=== PATIENT | male | born 1955 | race Caucasian/White ===

== ENCOUNTER 2022-07-15 10:42 | Outpatient (RCR) | payer BC, MEDICARE, SELFPAY ==
--- NOTE | 2022-06-11 08:28 | ONC.NURNOTE ---
Dx: prostate cancer
--- NOTE | 2022-07-09 09:22 | ONC.NURNOTE ---
Addendum entered by Viky Corral, ABDIRAHMAN 09/23/22 14:18: Per Availity [place] will now need prior authorization in 2022. Original Note: Authorization: User: Noemy Valdiviacody Date: 12/22/21 13:15 Type: Eligibility Determination Note... Request received from [facility] for prior authorization of [place] [id number]. Patient carries BCBS as primary insurance. Per Availity no prior authorization is required for [place]. Services are based on medical necessity. [id number]
[2022-07-15 10:54] VITALS: BP 127/77; PULSE 82; RESP 16; TEMP 36.6; O2SAT 98
--- NOTE | 2022-07-15 11:10 | PC.NURSE ---
[facility] received orders for Eligard from [facility] Rad[facility]. Along with those orders were lab orders. RN arranged to have lab draw blood, however, pt reported that he had labs drawn on Wednesday already. Pt confirmed TSA and Testosterone levels were drawn. No labs done here at [facility] today.
--- NOTE | 2022-12-10 13:44 | URNOTE ---
Request received from [facility] for prior authorization of [place] [id number]. Patient carries Medicare primary and BC [place], Prior authorization is not required as services are based on medical necessity and follow Medicare guidelines.
--- NOTE | 2023-01-01 12:03 | ONC.NURNOTE ---
Patient was due for lupron today, and did not show up. CS called patient to find out if he wanted to reschedule and he states that he received this elsewhere.
== END 2023-01-11 23:59 | disposition home or self-care (01) ==
LOC: CCIC 10:42
PROVIDERS: Visit Provider Clinical Nurse Specialist
DX: C61 Malignant neoplasm of prostate (principal)
CPT/HCPCS: 84153; 84403; 96401; J9217

== ENCOUNTER 2023-02-18 09:46 | Outpatient (RCR) | payer MEDICARE, BC, SELFPAY ==
--- NOTE | 2023-02-18 10:51 | PT.OPEX ---
PT [facility] Outpatient Eval PT [facility] Outpatient Eval Start: 02/18/23 07:20 Freq: Status: Active Protocol: Document 02/18/23 07:23 [place] (Rec: 02/18/23 07:30 [email or web address] [id number]) E-signed By Kailee Velazquez PT Physical Therapy Outpatient Evaluation Insurance Information Recert Due Date 05/15/23 Insurance Name Medicare B Medical Diagnosis Prostate CA Urinary incontinence secondary to radiation and prostatectomy Treating Diagnosis Urinary Incontinence Pelvic Floor Mm Weakness Lower abdominal pain Hip mm weakness Referring MD Dr Huang Carmona Subjective Subjective Callum reports this being his 3rd DX of CA. January 11, 1995 he had thyroid removed. Then prostate removed about 2 years ago. Just recently cancer moved into lymph system and he had radiation surgery to lymph nodes starting about a year ago. Completed 36 treatments. Since then he has experienced bladder incontinence. He denies any bowel issues, no pain with voiding or initiating a stream . Does feel like he doesn't empty his bladder all the way. He needs to wear a pad liner. He was using up to 3-4 pads a day. Kept a full change of clothing in his vehicle. These symptoms are much better, down to an average of 1 pad per day. 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 Pain Comments NA Date of Last Physician Visit 12/15/22 Current Work Status [employer] Occupation [employer] Precautions Treatment Precautions/Contraindications Prostate CA, hernia mesh on Lt lower side. Heart Condition, Metal Implants Weight Bearing Status Full Weight Bearing Therapy Limitations/Systems Review Vision Objective Range of Motion Very good, slight reduction in landry hip IR 0-12 Strength Hip ABD and EXT landry 3+/5 Palpation Tight lumbar psps and impaired sacral movement Assessment Assessment/Impression 67 YO with DX of Prostate CA with residual urinary incontinence secondary to radiation for prostatectomy. He presents with good posture and gross flexibility. The only deficit in range was landry hip IR 0-12 degrees. Good strength at landry hip ADD and flex, however, very weak with landry hip EXT and ABD 3+/5. Hypertonic full landry lumbar psps and landry rectus femoris. Noted tendency to hold his breath with exertion (MMT effort). He states he was unaware of this, will try to breath with his lifting. This may be effecting his incontinence as well. He has gross impairment of sacral movement in all planes with spring mobs. He will benefit from continued skilled physical therapy to educate in proper voiding posture, tips for complete bladder emptying, hip and pelvic/LB stretch and strengthening as well as PFM strength/kegel. Thank you for this referral. Plan of Care Rehabilitation Potential Good Physical Therapy Goals In 4-6 visits, Callum will be able to report: 1. Reduced holding his breath with exertion by at least 50%, to promote moving from conscious act to subconscious. 2. IND in proper execution of HEP with emphasis on reps, hold time, breathing In 8-10 visits, Callum will be able to report: 1. Reduced incontinence by reported 50% 2. Dry undergarments at least 2 days per week. 3. Improved hip IR by 5 deg, increased hip EXT/ABD strength from 3+ to 5/5 Coordination/Communication With Referral Source Treatment Plan/Direct Interventions Joint Mobilization,Manual Therapy,Neuromuscular Re-ed, Self-Care/Home Management, Therapeutic Activities, Therapeutic Exercises Frequency/Duration 1X/Wk for 10 visits Patient Will Be Discharged From Therapy Completion of LTG(s),Skills Plateau,Independent w/HEP, Independently Progressing Evaluation Billing Untimed Code Treatment Minutes 25 Complexity Moderate Certification Information Initial Certification Date 02/18/23 Ending Certification Date 05/15/23 Provider Signature Shows Agreement With POC & Medical Necessity Physician Signature & Date Requested Please Sign/Date Here Physician Comment/Change : Physician NPI Number #
== END 2023-04-12 13:48 | disposition home or self-care (01) ==
PROVIDERS: Visit Provider Internal Medicine
DX: C61 Malignant neoplasm of prostate (principal); N39.498 Other specified urinary incontinence; R10.30 Lower abdominal pain, unspecified; R53.1 Weakness; Z51.89 Encounter for other specified aftercare
CPT/HCPCS: 97110; 97162

== ENCOUNTER 2023-04-28 11:10 | Emergency (ER) | payer MEDICARE, BC, SELFPAY ==
[2023-04-28] VITALS (22 sets, daily range): BP systolic 117–144; BP diastolic 69–88; PULSE 61–80; RESP 16–20; TEMP 36.7; O2SAT 96–100; BMI 21.3
--- NOTE | 2023-04-28 11:24 | CRLHL7_ITS ---
For Patients: As a result of the Century Cures Act, medical imaging exams and procedure reports are released immediately into your electronic medical record. You may view this report before your referring provider. If you have questions, please contact your health care provider. INDICATION: Dizziness and vision changes TECHNIQUE: CT head without contrast. COMPARISON: None. FINDINGS: CSF spaces: Within normal limits for age. Brain parenchyma: The powers-white differentiation is normal. No sign of mass, hemorrhage, or midline shift. Skull base and calvarium: Mild mucosal thickening paranasal sinuses with osteoma within the left ethmoid sinuses. Atherosclerosis. The visualized orbits are grossly unremarkable. No skull fractures. IMPRESSION: Unremarkable noncontrast head CT. Results called to Dr. aDve at 1155 on 04/28/2023 Please note that all CT scans at this facility use dose modulation, iterative reconstruction, and/or weight-based dosing when appropriate to reduce radiation dose to as low as reasonably achievable. Dictated by Chad Marte MD @ 04/28/2023 11:55:39 AM (Electronically Signed)
--- NOTE | 2023-04-28 11:37 | ED_ITS ---
HPI - Dizziness General Date Seen: 04/28/23 Chief Complaint: Dizziness/Vertigo Stated Complaint: dizzy, left eye blurry Time Seen by Provider: 04/28/23 11:21 Source: patient Mode of arrival: ambulatory Limitations: no limitations History of Present Illness HPI Narrative: Patient is a 67-year-old gentleman who presents here from work, he works at local [employer], he went in to talk to his boss, he said he was having some overall feeling of dizziness, and some loss of vision out of the upper part of his left eye. This occurred approximately 20 minutes ago, is improved somewhat since he has come here, it least the dizziness. No past history of strokes, CVAs, heart issues. He was recently started on medication for hypertension. The problems seemingly little worse when he moves his head. Did eat normally this morning, has no numbness tingling or weakness, no problems with walking or talking, is on no hypoglycemics, denies any headaches, MD elicited complaint: dizziness Stroke scale total: 0 Related Data Home Medications Medication Instructions Recorded Confirmed gabapentin 100 mg capsule 200 mg PO Q12H 07/15/22 07/15/22 levothyroxine 150 mcg tablet 150 mcg PO DAILY 07/15/22 04/28/23 lisinopril 10 mg tablet 10 mg PO DAILY 07/15/22 04/28/23 levothyroxine 100 mcg tablet 100 mcg PO DAILY 04/28/23 04/28/23 triamterene 37.5 1 cap PO DAILY 04/28/23 04/28/23 mg-hydrochlorothiazide 25 mg capsule Previous Rx's Medication Instructions Recorded aspirin 81 mg capsule 81 mg PO DAILY #60 caps 04/28/23 clopidogrel 75 mg tablet (Plavix) 75 mg PO DAILY #20 tabs 04/28/23 Allergies Allergy/AdvReac Type Severity Reaction Status Date / Time No Known Drug Allergies Allergy Verified 04/28/23 11:20 Review of Systems Status of ROS: Reports: 10 or more systems reviewed and unremarkable except as noted in History and below PFSH PFS Social History Smoking Status: Current some day smoker What tobacco products do you use: cigarettes Do you use any of these nicotine containing products: None Second hand tobacco smoke exposure: Yes How often do you have a drink containing alcohol: monthly or less How many standard drinks containing alcohol do you have on a typical day: 1 or 2 How often do you have six or more drinks on one occasion: Never AUDIT-C Alcohol total score: 1 Non-prescribed substance use: marijuana (any form) service: No Exam Narrative: Exam Narrative: On examination he is in no apparent distress he seen and stabilization room 2 he is oriented to 3 spheres, his GCS is 15/15 his pupils are equal round reactive to light he tracks normally with absence of nystagmus. His visual acuity is will be tested, his visual de [place] paz however are also normal. TMs are normal bilaterally, carotid upstrokes are equal, is cranial nerves 3-12 are entirely normal, he is able to whistle, is neck is supple, chest is clear heart sounds are normal no clicks murmurs or gallops, moves all extremities independently well both distal and proximal. Fine motor movements fingers nose testing are normal, he is right-hand dominant, tandem walking is assessed and normal. Sensation is normal noted to be normal grossly in his upper lower extremities, his abdomen is soft there is no masses, he stent, glucose pending at the time of this dictation. I spoke to the stroke neurologist, she will seem assess, head CT will be done. Const: Vital Signs, click to edit/add: Vital Signs - 24 hr 04/28/23 11:15 04/28/23 12:00 04/28/23 12:00 Temperature 98.1 F Pulse Rate Pulse Rate [Right Pulse Oximeter] 61 71 Respiratory Rate 18 20 Blood Pressure Blood Pressure [Ri ght Upper Arm] 117/71 129/72 Pulse Oximetry 96 97 97 Oxygen Delivery Me thod Room Air Room Air 04/28/23 12:12 04/28/23 12:15 04/28/23 12:45 Temperature Pulse Rate Pulse Rate [Right Pulse Oximeter] 71 70 77 Respiratory Rate 19 20 16 Blood Pressure Blood Pressure [Ri ght Upper Arm] 133/71 128/71 143/72 H Pulse Oximetry 98 98 99 Oxygen Delivery Me thod Room Air Room Air Room Air 04/28/23 12:58 04/28/23 13:00 04/28/23 13:02 Temperature Pulse Rate 74 76 71 Pulse Rate [Right Pulse Oximeter] Respiratory Rate Blood Pressure 129/76 Blood Pressure [Ri ght Upper Arm] Pulse Oximetry 99 98 98 Oxygen Delivery Me thod 04/28/23 13:15 04/28/23 13:17 04/28/23 13:30 Temperature Pulse Rate 70 71 68 Pulse Rate [Right Pulse Oximeter] Respiratory Rate Blood Pressure 121/69 Blood Pressure [Ri ght Upper Arm] Pulse Oximetry 97 97 99 Oxygen Delivery Me thod 04/28/23 13:31 04/28/23 13:47 04/28/23 13:49 Temperature Pulse Rate 68 73 Pulse Rate [Right Pulse Oximeter] Respiratory Rate Blood Pressure 124/74 130/77 Blood Pressure [Ri ght Upper Arm] Pulse Oximetry 97 99 Oxygen Delivery Me thod 04/28/23 14:00 04/28/23 14:02 04/28/23 14:15 Temperature Pulse Rate 73 75 74 Pulse Rate [Right Pulse Oximeter] Respiratory Rate Blood Pressure 122/75 Blood Pressure [Ri ght Upper Arm] Pulse Oximetry 98 98 98 Oxygen Delivery Me thod 04/28/23 14:17 04/28/23 14:30 04/28/23 14:32 Temperature Pulse Rate 80 66 67 Pulse Rate [Right Pulse Oximeter] Respiratory Rate Blood Pressure 136/84 123/76 Blood Pressure [Ri ght Upper Arm] Pulse Oximetry 100 99 100 Oxygen Delivery Me thod 04/28/23 14:45 04/28/23 14:47 Temperature Pulse Rate 63 74 Pulse Rate [Right Pulse Oximeter] Respiratory Rate Blood Pressure 144/88 H Blood Pressure [Ri ght Upper Arm] Pulse Oximetry 99 99 Oxygen Delivery Me thod Documenting provider has reviewed patient's vital signs: yes Course Course Hospital Course: I went back in and talked to the patient after we did the head CT this [facility] neurologist wanted him to be admitted for further workup, bruise declined this intervention, and left against medical advice, he did agree to take the Plavix, and aspirin, and then follow-up with primary care. Explained him he will need an MRI, of his head in an echo. Given that he was back to normal he would like to go. Was evidence of an ulcerated plaque a 50% on the right-sided carotid, Dr. Bui from neuro recommended that he be on the Plavix, follow-up with his primary care [place] physician. Return if he would like to be admitted He understands that he could have worsening his condition stroke, disability or even associated with this by leaving. Vital Signs Vital signs: Initial Vital Signs Temperature 98.1 F 04/28/23 11:15 Temperature Source Temporal Artery Scan 04/28/23 11:15 Pulse Rate 61 04/28/23 11:15 Respiratory Rate 18 04/28/23 11:15 Blood Pressure 117/71 04/28/23 11:15 Blood Pressure Mean 86 04/28/23 11:15 Blood Pressure Position Sitting 04/28/23 11:15 Pulse Oximetry 96 04/28/23 11:15 Oxygen Delivery Method Room Air 04/28/23 11:15 Vital Signs Temperature 98.1 F 04/28/23 11:15 Pulse Rate 61 04/28/23 11:15 Respiratory Rate 18 04/28/23 11:15 Blood Pressure 117/71 04/28/23 11:15 Pulse Oximetry 96 04/28/23 11:15 Oxygen Delivery Method Room Air 04/28/23 11:15 Temperature 98.1 F 04/28/23 11:15 Pulse Rate 74 04/28/23 14:47 Respiratory Rate 16 04/28/23 12:45 Blood Pressure 144/88 H 04/28/23 14:47 Pulse Oximetry 99 04/28/23 14:47 Oxygen Delivery Method Room Air 04/28/23 12:45 MDM - Dizziness Lab Data Labs: Lab Results 04/28/23 04/28/23 04/28/23 Range/Units 11:32 11:44 Unknown WBC 5.33 (4.50-11.00) K/uL RBC 4.18 L (4.30-5.90) m/uL Hgb 12.9 L (13.5-17.5) gm/dL Hct 37.9 (37.0-53.0) % MCV 91 (80-100) fL MCH 31 (26-34) pg MCHC 34 (32-36) gm/dL RDW Coeff of Marguerite 12.7 (11.5-15.5) % Plt Count 292 (140-440) K/uL Neut % (Auto) 65.6 (42.0-72.0) % Lymph % (Auto) 17.1 L (20-44) % Kings % (Auto) 12.2 H (0.0-11.0) % Eos % (Auto) 3.9 (0.0-7.0) % Baso % (Auto) 0.6 (0.0-3.0) % Neut # (Auto) 3.50 (1.7-7.0) K/uL Lymph # (Auto) 0.90 (0.90-2.90) K/uL Kings # (Auto) 0.70 (0.00-0.90) K/UL Eos # (Auto) 0.21 (0.00-0.50) K/uL Baso # (Auto) 0.03 (0.00-0.30) K/uL Abs Immat Gran (auto) 0.03 (0.00-0.30) K/uL Imm/Tot Granulo (auto) 0.6 % INR 0.87 L (0.91-1.10) APTT 28 (23-33) Seconds Sodium 136 (135-149) mmol/L Potassium 4.0 (3.6-5.1) mmol/L Chloride 101 (96-114) mmol/L Carbon Dioxide 25 (20-32) mmol/L Anion Gap 10 (7-15) mEq/L BUN 26 (7-30) mg/dL Creatinine 1.4 (0.5-1.5) mg/dL Estimated Creat Clear 48.60 Estimated GFR 56 ml/min Glucose 114 (60-115) mg/dL Calcium 9.0 (8.4-10.6) mg/dL Urine Color Yellow (Yellow) Urine Appearance Clear (Clear) Urine pH 5.5 (5.0-8.5) Ur Specific Bassett 1.015 (1.000-1.030) Urine Protein Negative (Negative) Urine Glucose (UA) Negative (Negative) Urine Ketones Negative (Negative) Urine Blood Negative (Negative) Urine Nitrite Negative (Negative) Urine Bilirubin Negative (Negative) Urine Urobilinogen 0.2 (0.2-1.0) Ur Leukocyte Esterase Negative (Negative) Urine RBC 0-2 (0-2) Urine WBC 0-2 (0-5) Ur Squamous Epith Cells None (None-Few) Urine Bacteria None (None) Ethyl Alcohol < 0.01 L (0.01-0.03) % POC Troponin I 0.00 L (0.01-0.04) ng/ml Discharge Plan Discharge Clinical Impression: Brain TIA, Carotid artery stenosis, unilateral Patient Disposition: Left Against Medical Advice Condition: Improved Instructions: Transient Ischemic Attack (ED), Carotid Artery Disease (DC) Additional Instructions: As discussed with you I wanted you to stay in the hospital, call your doctor when he gets home, you will need follow-up for the mini-stroke, stay on the Plavix for 3 weeks, stay on the daily aspirin 81 mg. Return if ongoing signs and symptoms which brought you to the hospital. Activity Level: Light activity Prescriptions: New aspirin 81 mg capsule 81 mg PO DAILY Qty: 60 2RF clopidogrel [Plavix] 75 mg tablet 75 mg PO DAILY Qty: 20 0RF No Action gabapentin 100 mg capsule 200 mg PO Q12H Patient Comments: TAKE FOUR CAPSULES BY MOUTH DAILY lisinopril 10 mg tablet 10 mg PO DAILY Patient Comments: Take 1 tablet (10 mg total) by mouth daily. levothyroxine 150 mcg tablet 150 mcg PO DAILY Patient Comments: TAKE ONE TABLET BY MOUTH ONE TIME DAILY IN THE MORNING BEFORE BREAKFAST triamterene-hydrochlorothiazid 37.5-25 mg capsule 1 cap PO DAILY levothyroxine 100 mcg tablet 100 mcg PO DAILY Follow Up/Referrals: Provider,Not a Local [Primary Care Provider] - Stand Alone Forms: [employer] Info Instructions
[2023-04-28 11:43] LABS: Basophils Absolute Auto 0.03 K/uL (0.00-0.30); Basophils Percent Auto 0.6 % (0.0-3.0); Eosinophils Absolute Auto 0.21 K/uL (0.00-0.50); Eosinophils Percent Auto 3.9 % (0.0-7.0); Hematocrit 37.9 % (37.0-53.0); Hemoglobin* 12.9 gm/dL (13.5-17.5); Immature Granulocytes Abs Auto 0.03 K/uL (0.00-0.30); Immature Granulocytes Pct Auto 0.6 %; Lymphocytes Percent Auto 17.1 % (20-44); Mean Corpuscular HGB Conc 34 gm/dL (32-36); Mean Corpuscular Hemoglobin 31 pg (26-34); Mean Corpuscular Volume 91 fL (80-100); Monocytes Percent Auto 12.2 % (0.0-11.0); Neutrophils Percent Auto 65.6 % (42.0-72.0); Platelet Count* 292 K/uL (140-440); RDW Coefficient of Variation % 12.7 % (11.5-15.5); Red Blood Count 4.18 m/uL (4.30-5.90); White Blood Count* 5.33 K/uL (4.50-11.00)
[2023-04-28 11:46] LABS: Slide Review Reflex No
[2023-04-28] MEDS: 0.9 % SODIUM CHLORIDE 1000 ml 1,000 ML IV (11:49)
--- NOTE | 2023-04-28 11:53 | CRLHL7_ITS ---
For Patients: As a result of the Century Cures Act, medical imaging exams and procedure reports are released immediately into your electronic medical record. You may view this report before your referring provider. If you have questions, please contact your health care provider. INDICATION: Acute stroke, dizziness, visual changes. TECHNIQUE: CTA head with contrast bolus tracking, 3D angiographic rendering using maximum intensity projection (MIP) and images permanently archived. FINDINGS: There is scattered intracranial atherosclerotic disease. There is normal opacification of the intracranial vasculature. There is no large vessel occlusion. No aneurysm is identified. IMPRESSION: No large vessel occlusion. Please note that all CT scans at this facility use dose modulation, iterative reconstruction, and/or weight-based dosing when appropriate to reduce radiation dose to as low as reasonably achievable. Dictated by Zen Peña MD @ 04/28/2023 1:49:46 PM (Electronically Signed)
--- NOTE | 2023-04-28 11:53 | CRLHL7_ITS ---
For Patients: As a result of the Century Cures Act, medical imaging exams and procedure reports are released immediately into your electronic medical record. You may view this report before your referring provider. If you have questions, please contact your health care provider. INDICATION: Acute stroke, dizziness, visual changes. TECHNIQUE: CTA neck with contrast bolus tracking, 3D angiographic rendering using maximum intensity projection (MIP) and images permanently archived. FINDINGS: There is carotid atherosclerosis bilaterally. There is a moderate 50% stenosis of the proximal right ICA due to ulcerated plaque. There is no significant left internal carotid artery stenosis or dissection. There is long segment mild mid left common carotid artery stenosis. There is no significant vertebral artery stenosis or dissection. The soft tissues of the neck are within normal limits. There has been an anterior cervical diskectomy and fusion procedure at C4-5. IMPRESSION: Moderate 50% proximal right ICA stenosis due to ulcerated plaque. Please note that all CT scans at this facility use dose modulation, iterative reconstruction, and/or weight-based dosing when appropriate to reduce radiation dose to as low as reasonably achievable. Dictated by Zen Peña MD @ 04/28/2023 2:00:32 PM (Electronically Signed)
[2023-04-28 11:56] LABS: Chloride* 101 mmol/L (96-114); Sodium* 136 mmol/L (135-149)
[2023-04-28 11:58] LABS: Creatinine* 1.4 mg/dL (0.5-1.5); Estimated Glomerular Filt Rate 56 ml/min
[2023-04-28 11:59] LABS: Anion Gap 10 mEq/L (7-15); Blood Urea Nitrogen* 26 mg/dL (7-30); Carbon Dioxide* 25 mmol/L (20-32); Glucose* 114 mg/dL (60-115); INR 0.87 (0.91-1.10); Prothrombin Time 12.4 Seconds
[2023-04-28 12:00] LABS: Partial Thromboplastin Time* 28 Seconds (23-33)
[2023-04-28 12:01] LABS: Ethanol* < 0.01 % (0.01-0.03)
--- NOTE | 2023-04-28 12:06 | ED.NURSE ---
is getting evaluated per stroke neurology. is speaking to her on the phone. the computer was beaking up and very difficult to understand her requests.
[2023-04-28 12:45] LABS: Appearance Urine Clear (Clear); Bilirubin Urine Negative (Negative); Blood Urine Negative (Negative); Color Urine Yellow (Yellow); Glucose Urine Negative (Negative); Ketones Urine Negative (Negative); Leukocyte Esterase Urine Negative (Negative); Nitrite Urine Negative (Negative); Protein Urine Negative (Negative); Specific Gravity Urine 1.015 (1.000-1.030); Urobilinogen Urine 0.2 (0.2-1.0); pH Urine 5.5 (5.0-8.5)
[2023-04-28] MEDS: ASPIRIN 81 MG TAB.CHEW 324 MG PO (12:47)
[2023-04-28 13:00] LABS: RBC Urine 0-2 (0-2); WBC Urine 0-2 (0-5)
[2023-04-28] MEDS: CLOPIDOGREL 75 MG TABLET PO (14:56)
--- NOTE | 2023-04-28 15:02 | ED.NURSE ---
patient is eager to leave for home and does not want to wait for MRI. Went over the paperwork for AMA. removed the saline lock in the LAC and applied pressure to the site. given Plavix 75 mg orally now.
== END 2023-04-28 15:07 | disposition left against medical advice (07) ==
PROVIDERS: Emergency Provider Family Medicine
DX: I63.231 Cerebral infarction due to unspecified occlusion or stenosis of right carotid arteries (principal); Z53.29 Procedure and treatment not carried out because of patient's decision for other reasons
CPT/HCPCS: 36415; 70450; 70496; 70498; 80048; 81001; 82077; 82962; 84484; 85025; 85610; 85730; 93005; 94761; 96360; 99285; A9270; J7030; Q9967